=== PATIENT | female | born 1985 | race African-American/Black ===

== ENCOUNTER 2017-08-12 01:44 | Emergency (ER) | payer BC, MEDICAID ==
[~2017-08-12] VITALS: Ht 165.1 cm; Wt 63.5 kg
[2017-08-12 01:47] VITALS: BP 137/80
--- NOTE | 2017-08-12 01:54 | NUR ---
TO LOBBY AMB, VS STABLE A/W FOR BED, LIBERTY NOTED
[2017-08-12 01:55] VITALS: BP 137/80
--- NOTE | 2017-08-12 03:55 | NUR ---
PATIENT TO BED , NO RESPONSE
--- NOTE | 2017-08-12 04:00 | NUR ---
CALLED FOR THE SECOND TIME NO RESPONSE
--- NOTE | 2017-08-12 04:05 | NUR ---
CALLED FOR THE THIRD TIME NO RESPONSE, PATIENT LEFT WITHOUT BEING SEEN BY DR. ZUNIGA. NO FURTHER CARE PROVIDED FOR PATIENT.
== END 2017-08-12 04:05 | disposition left against medical advice (07) ==
LOC: MED 01:44
DX: F41.9 Anxiety disorder, unspecified (principal); Z53.21 Procedure and treatment not carried out due to patient leaving prior to being seen by health care provider

== ENCOUNTER 2019-07-04 15:25 | Emergency (ER) | payer BC, MEDICAID ==
[~2019-07-04] VITALS: Ht 167.6 cm; Wt 77.1 kg
[2019-07-04 15:25] VITALS: BP 123/80
--- NOTE | 2019-07-04 15:26 | NUR ---
PT SENT TO LOBBY TO WAIT FOR AVAILABLE BED. PT AMBULATORY WITH STEADY GAIT. NO SIGNS OF RESPIRATORY DISTRESS. PT SPEAKING IN FULL SENTENCES.
--- NOTE | 2019-07-04 15:44 | NUR ---
PATIENT LEFT WITHOUT BEING SEEN BY DR. ARTHUR. NO FURTHER CARE PROVIDED FOR PATIENT.
== END 2019-07-04 15:44 | disposition left against medical advice (07) ==
LOC: MED 15:25
DX: F41.9 Anxiety disorder, unspecified (principal); R06.02 Shortness of breath; Z53.21 Procedure and treatment not carried out due to patient leaving prior to being seen by health care provider

== ENCOUNTER 2020-03-08 13:51 | Emergency (ER) | payer BC, MEDICAID ==
[~2020-03-08] VITALS: Ht 167.6 cm; Wt 63.5 kg
--- NOTE | 2020-03-08 13:55 | NUR ---
PATIENT TO BED 11 BY EMS AT THIS TIME.
[2020-03-08 14:02] VITALS: BP 128/70
--- NOTE | 2020-03-08 14:05 | NUR ---
Patient being evaluated by TAYLOR BA at bedside.
--- NOTE | 2020-03-08 14:20 | NUR ---
DEMIAN FROM [place] C/O ANXIETY X TODAY. DENIES SI.PT STATED SHE WANT FOOD TO EAT. MED HX: DENIES
[2020-03-08 14:22] VITALS: BP 128/70
--- NOTE | 2020-03-08 14:22 | NUR ---
Patient discharged with v/s stable. Written and verbal after care instructions given and explained. Patient alert, oriented and verbalized understanding of instructions. Ambulatory with steady gait. All questions addressed prior to discharge. ID band removed. Patient advised to follow up with PMD. Rx of VISTARIL given. Patient educated on indication of medication including possible reaction and side effects. Opportunity to ask questions provided and answered.
== END 2020-03-08 14:22 | disposition home or self-care (01) ==
LOC: MED 13:51
DX: F41.9 Anxiety disorder, unspecified (principal); F17.210 Nicotine dependence, cigarettes, uncomplicated
CPT/HCPCS: 99283

== ENCOUNTER 2020-12-18 12:01 | Emergency (ER) | payer BC, MEDICAID ==
[~2020-12-18] VITALS: Ht 167.6 cm; Wt 67.6 kg
--- NOTE | 2020-12-18 12:09 | NUR ---
PT AMBULATED TO [facility].
--- NOTE | 2020-12-18 12:13 | NUR ---
35 Y/O FEMALE BIBA FROM STREETS C/O ANXIETY. PT DENIES PAIN, DENIES N/V, DENIES FEVER/CHILLS. PMH: ANXIETY NKA
--- NOTE | 2020-12-18 12:45 | NUR ---
PATIENT LEFT WITHOUT BEING SEEN BY DR. MATSON. NO FURTHER CARE PROVIDED FOR PATIENT.
== END 2020-12-18 12:45 | disposition left against medical advice (07) ==
LOC: MED 12:01
DX: F41.9 Anxiety disorder, unspecified (principal); Z53.21 Procedure and treatment not carried out due to patient leaving prior to being seen by health care provider